=== PATIENT | female | born 1965 | race Caucasian/White ===

== ENCOUNTER → 2018-02-02 11:33 | Outpatient (CLI) | payer OTHER, SELFPAY ==
[2018-02-02 14:52] LABS: Absolute Lymphocyte Count 1.36 X10^3/ul (0.83-4.51); Absolute Neutrophil Count 4.1 X10^3/uL (2.0-7.7); Basophil# 0.03 X10^3/uL; Basophil% 0.5 % (0-1); Eosinophil# 0.07 X10^3/uL; Eosinophils% 1.2 % (0-5); Hematocrit 39.6 % (37-47); Hemoglobin 12.7 g/dl (12.0-15.0); Lymphocyte # 1.36 X10^3/ul (4.0); Lymphocyte % 22.6 % (19-41); Mean Corp Hgb Conc 32.1 g/gl (32-36); Mean Corpuscular Hgb 28.5 pg (27.0-32.0); Mean Platelet Vol. 10.2 fl (6.2-12.0); Monocyte# 0.49 X10^3/uL; Monocyte% 8.1 % (0-10); Neutrophil # 4.06 X10^3/uL (2.7-7.7); Neutrophil % 67.4 % (47-70); Platelet Count 260 K/mm3 (150-450); RBC Distribution Width SD 42.2 fl (35.1-43.9); Red Blood Count 4.45 M/mm3 (4.2-5.4)
[2018-02-02 14:56] LABS: POSITIVE COUNT NO; POSITIVE DIFFERENTIAL NO; POSITIVE MORPHOLOGY NO
[2018-02-02 15:32] LABS: ALB/GLOB Ratio 1.1 RATIO (0.9-2.4); AST(SGOT) 21 U/L (15-37); Alanine Aminotransfer ALT/SGPT 25 U/L (13-56); Albumin, Serum 3.9 g/dL (3.2-5.0); Alkaline Phosphatase 47 U/L (45-117); Anion Gap 5 (5-15); BUN 16 mg/dL (7-18); BUN/Creat Ratio 17.6 RATIO (10-20); Calcium,Total 9.3 mg/dL (8.5-10.1); Chloride 104 mmol/L (98-107); Creatinine, Serum 0.91 mg/dL (0.55-1.02); EST Glomerular Filtration Rate 69 mL/min (>60); Est Glom Filt Rate - Afr Amer 83 mL/min (>60); Globulin 3.6 g/dL (2.2-4.2); Glucose 93 mg/dL (74-106); Iron 72 ug/dL (50-170); Magnesium 2.3 mg/dL (1.6-2.6); Potassium 4.1 mmol/L (3.5-5.1); Protein, Total 7.5 g/dL (6.4-8.2); Sodium Level 139 mmol/L (136-145); Thyroid Stim Hormone (TSH) 1.49 uIU/mL (0.358-3.74); Vitamin B12 594 pg/mL (211-911)
== END ==
PROVIDERS: Family Provider Family Medicine; PCP Family Medicine; Visit Provider Family Medicine
DX: R53.83 Other fatigue (principal); R00.2 Palpitations
CPT/HCPCS: 36415; 80053; 82306; 82607; 83540; 83735; 84443; 85025

== ENCOUNTER → 2018-06-27 07:18 | Outpatient (CLI) | payer OTHER, SELFPAY ==
[2018-06-27 10:37] LABS: Vitamin D,25 Hydroxy 18.2 ng/mL (29.95-100.01)
--- OUTSIDE RECORDS SUMMARY | 2018-09-28 08:04 | XMS RPT_ITS ---
:1965 Author Organization [facility] Care Team Providers Name Role Phone Al Waktins Attending Unavailable Al Watkins Referring Unavailable Al Watkins Primary Care Unavailable Al Watkins Attending Unavailable Al Watkins Primary Care Unavailable PROBLEMS PROBLEMS No Problem Records FoundPROCEDURES PROCEDURES No Procedure Records FoundRESULTS RESULTS VITAMIN D,25 HYDROXY Collected: 06/27/2018 Status: F Source: [place] 7:24 AM [facility] [place] REPOSITORY TYPE CODE TESTS RESULT OUT OF REFERENCE UNITS RANGE LAB L506.1000 29.95-100.01 ng/mL Low Vitamin D 18.2 25-OH Result Comment: Vitamin D 25(OH) Status Range Deficiency <20 ng/mL (50nmol/L) Insuffciency 20 - 30 ng/mL (50 - 75 nmol/L) Sufficiency 30 - 100 ng/mL (75 - 250 nmol/L) Toxicity >100 ng/mL (>250 nmol/L) Performed By: #### L506.1000 #### [facility] FLAQUITA Jaime, 888481 CBC W/DIFF, AUTOMATED Collected: 02/02/2018 Status: F Source: [place] 11:37 AM [facility] REPOSITORY Order Comment: Order Date: 02/02/18 Order Info: 0184-1 - CBCD TYPE CODE TESTS RESULT OUT OF RANGE REFERENCE UNITS LAB L100.1000 4.4-11.0 K/mm3 Normal WBC 6.0 LAB L100.1200 4.2-5.4 M/mm3 Normal RBC 4.45 LAB L100.1300 12.0-15.0 g/dl Normal HGB 12.7 LAB L100.1400 37-47 % Normal HCT 39.6 LAB L100.1500 81-99 fL Normal MCV 89.0 LAB L100.1600 27.0-32.0 pg Normal MCH 28.5 LAB L100.1700 32-36 g/gl Normal MCHC 32.1 LAB L100.1810 11.6-14.6 % Normal RDW CV 13.0 LAB L100.1820 35.1-43.9 fl Normal RDW SD 42.2 LAB L100.1900 150-450 K/mm3 Normal PLT 260 LAB L100.2000 6.2-12.0 fl Normal MPV 10.2 LAB L100.2100 47-70 % Normal NEUT% 67.4 LAB L100.2200 19-41 % Normal LY% 22.6 LAB L100.2300 0-10 % Normal MONO% 8.1 LAB L100.2400 0-5 % Normal EO% 1.2 LAB L100.2500 0-1 % Normal BASO% 0.5 LAB L100.2550 0.0-0.9 % Normal IM GRAN % 0.200 Result Comment: IG% - Immature Granulocytes (promyelocytes, myelocytes and metamyelocytes) > 1% indicates that a LEFT SHIFT is Present. LAB L100.2620 2.0-7.7 X10 3/uL Normal Absolute Neut 4.1 LAB L100.2720 0.83-4.51 X10 3/ul Normal Absolute Lymph 1.36 Performed By: #### L100.0100, L500.4050, L501.5200, L501.9520, L503.6150, L503.0105, L506.1000 #### [facility] [address] [place], [address] COMPREHENSIVE METABOLIC Collected: 02/02/2018 Status: F Source: [place] 11:37 AM [facility] [place] REPOSITORY Order Comment: Order Date: 02/02/18 Order Info: 0786-1 - CMP Order Info: [id number] - MG Order Info: 3016-3 - TSH Order Info: 2498-4 - FE TYPE CODE TESTS RESULT OUT OF RANGE REFERENCE UNITS LAB L501.0100 74-106 mg/dL Normal GLU 93 Result Comment: Please note revised GLUCOSE reference range effective 2017. LAB L501.1000 7-18 mg/dL Normal BUN 16 LAB L501.1100 0.55-1.02 mg/dL Normal CREAT,SERUM 0.91 Result Comment: The validity of the calculated GFR AND GFRAA in patients over 70 years has not been determined. Clinical correlation is essential. LAB L501.1110 >60 mL/min Normal EST GFR 69 Result Comment: Non- GFR Calc LAB L501.1115 >60 mL/min Normal EST GFR - AA 83 Result Comment: GFR Calc LAB L501.1300 10-20 RATIO Normal BUN/CRE 17.6 LAB L501.1500 6.4-8.2 g/dL T Normal PROT 7.5 LAB L501.1800 3.2-5.0 g/dL Normal ALB 3.9 LAB L501.1950 2.2-4.2 g/dL Normal GLOB 3.6 LAB L501.2000 0.9-2.4 RATIO Normal A/G 1.1 LAB L501.2200 8.5-10.1 mg/dL CA Normal 9.3 LAB L501.4100 15-37 U/L Normal AST 21 LAB L501.4305 45-117 U/L Normal ALK P 47 LAB L501.4405 13-56 U/L Normal ALT 25 LAB L501.4600 0.20-1.00 mg/dL T Normal BILI 0.30 LAB L501.5300 136-145 mmol/L NA Normal 139 LAB L501.5600 3.5-5.1 mmol/L K Normal 4.1 LAB L501.5900 98-107 mmol/L CL Normal 104 LAB L501.6100 21.0-32.0 mmol/L Normal CO2 30.0 LAB L501.6200 5-15 Normal GAP 5 Performed By: #### L100.0100, L500.4050, L501.5200, L501.9520, L503.6150, L503.0105, L506.1000 #### [facility] [address] [place], [place], [address] (626) MAGNESIUM Collected: 02/02/2018 Status: F Source: PILAR 11:37 AM [facility] [place] REPOSITORY Order Comment: Order Date: 02/02/18 Order Info: [id number] - CMP Order Info: [id number] - MG Order Info: 3016-3 - TSH Order Info: 2498-4 - FE TYPE CODE TESTS RESULT OUT OF RANGE REFERENCE UNITS LAB L501.5200 1.6-2.6 mg/dL Normal MG 2.3 Performed By: #### L100.0100, L500.4050, L501.5200, L501.9520, L503.6150, L503.0105, L506.1000 #### [facility] [address] [place], [place], [address] THYROID STIM HORMONE Collected: 02/02/2018 Status: F Source: PILAR (TSH) 11:37 AM [facility] [place] REPOSITORY Order Comment: Order Date: 02/02/18 Order Info: 0786- - CMP Order Info: [id number] - MG Order Info: 3015-3 - TSH Order Info: 2498-4 - FE TYPE CODE TESTS RESULT OUT OF RANGE REFERENCE UNITS LAB L501.9520 0.358-3.74 uIU/mL Normal TSH 1.49 Performed By: #### L100.0100, L500.4050, L501.5200, L501.9520, L503.6150, L503.0105, L506.1000 #### [facility] [address] [place], [address] IRON Collected: 02/02/2018 Status: F Source: PILAR 11:37 AM [facility] [place] REPOSITORY Order Comment: Order Date: 02/02/18 Order Info: [id number] - CMP Order Info: [id number] - MG Order Info: 3016-3 - TSH Order Info: 2498-4 - FE TYPE CODE TESTS RESULT OUT OF RANGE REFERENCE UNITS LAB L503.6150 50-170 ug/dL Normal IRON 72 Performed By: #### L100.0100, L500.4050, L501.5200, L501.9520, L503.6150, L503.0105, L506.1000 #### [facility] [address] [place], [address] VITAMIN B12 Collected: 02/02/2018 Status: F Source: [place] 11:37 AM [facility] [place] REPOSITORY Order Comment: Order Date: 02/02/18 Order Info: 9 - B12 Order Info: 67299-5 - VITD25 TYPE CODE TESTS RESULT OUT OF RANGE REFERENCE UNITS LAB L503.0105 211-911 pg/mL Normal Vitamin B12 594 Performed By: #### L100.0100, L500.4050, L501.5200, L501.9520, L503.6150, L503.0105, L506.1000 #### [facility] [address] [place], [place], [address] VITAMIN D,25 HYDROXY Collected: 02/02/2018 Status: F Source: [place] 11:37 AM [facility] [place] REPOSITORY Order Comment: Order Date: 02/02/18 Order Info: 2131-9 - B12 Order Info: 85741-9 - VITD25 TYPE CODE TESTS RESULT OUT OF REFERENCE UNITS RANGE LAB L506.1000 29.95-100.01 ng/mL Low Vitamin D 20.0 25-OH Result Comment: Vitamin D 25(OH) Status Range Deficiency <20 ng/mL (50nmol/L) Insuffciency 20 - 30 ng/mL (50 - 75 nmol/L) Sufficiency 30 - 100 ng/mL (75 - 250 nmol/L) Toxicity >100 ng/mL (>250 nmol/L) Performed By: #### L100.0100, L500.4050, L501.5200, L501.9520, L503.6150, L503.0105, L506.1000 #### [facility] [address] [place], [address] ALLERGIES ALLERGIES DATE TYPE / CODE NAME / CODE REACTION SEVERITY SOURCE 09/12/2013 Drug Penicillins/ Hives Unknown [facility] Allergy/4160 [id number]( Hospital [address](SNOMED XNORM) Repository CT) ENCOUNTERS ENCOUNTERS ADMIT/DISCHARGE ACCOUNT ADMITTING ENCOUNTER LOCATION SOURCE NUMBER CLASS 06/27/2018 [id number] Ambulatory [place] [facility] ing:MTLAB Repository 02/02/2018 [id number] Ambulatory [place] [facility] [address] [facility] ing:MFPLAB Repository PAYERS PAYERS ENCOUNTER GUARANTOR PAYER SUBSCRIBER SOURCE 06/27/2018 KATIE Carson Primary LISAZach [id number] Insurance:SUMMA KLINECTDOB: [facility] [place]: [id number] Repository [address]90[address]Scz: [phone]) Date:[phone] () [address] [place] [phone]: 06/27/2018 Secondary NOT GIVENUNK [place] Insurance:SELF PAY [facility] Number: Effective Repository Date:2018-06-27 02/02/2018 Katie Carson Primary LISA [place] [id number] [facility] Insurance:SUMMA KLINECTDOB: [facility] Number: [id number] [id number] Repository [address]Acx: [phone]) Date:[id number] [phone] () [place], [place] [phone]: 02/02/2018 Secondary NOT GIVENUNK [place] Insurance:SELF PAY [facility] Number: Effective Repository Date:2018-02-02
== END ==
PROVIDERS: Family Provider Family Medicine; PCP Family Medicine; Referring Provider Family Medicine; Visit Provider Family Medicine
DX: E55.9 Vitamin D deficiency, unspecified (principal)
CPT/HCPCS: 36415; 82306

== ENCOUNTER → 2018-11-02 10:40 | Outpatient (CLI) | payer OTHER, SELFPAY ==
[2018-11-02 12:35] LABS: Vitamin D,25 Hydroxy 39.4 ng/mL (29.95-100.01)
== END ==
PROVIDERS: Family Provider Family Medicine; PCP Family Medicine; Referring Provider Family Medicine; Visit Provider Family Medicine
DX: E55.9 Vitamin D deficiency, unspecified (principal)
CPT/HCPCS: 36415; 82306

== ENCOUNTER → 2021-02-23 15:29 | Outpatient (CLI) | payer OTHER, SELFPAY ==
[2021-02-23 18:06] LABS: Hematocrit 39.5 % (37-47); Hemoglobin 13.1 g/dL (12.0-15.0); Mean Corp Hgb Conc 33.2 g/dL (32-36); Mean Corpuscular Hgb 28.7 pg (27.0-32.0); Mean Corpuscular Volume 86.4 fL (81-99); Mean Platelet Vol. 9.8 fl (6.2-12.0); Platelet Count 339 K/mm3 (150-450); RBC Distribution Width CV 12.5 % (11.6-14.6); RBC Distribution Width SD 39.1 fl (35.1-43.9); Red Blood Count 4.57 M/mm3 (4.2-5.4); White Blood Count 5.6 K/mm3 (4.4-11.0)
[2021-02-23 18:40] LABS: Vitamin B12 1587 pg/mL (211-911); Vitamin D,25 Hydroxy 30.8 ng/mL
[2021-02-23 18:49] LABS: AST(SGOT) 28 U/L (15-37); Alanine Aminotransfer ALT/SGPT 44 U/L (13-56); Albumin, Serum 3.9 g/dL (3.2-5.0); Alkaline Phosphatase 66 U/L (45-117); Anion Gap 5 (5-15); BUN 17 mg/dL (7-18); BUN/Creat Ratio 18.3 RATIO (10-20); Calcium,Total 9.6 mg/dL (8.5-10.1); Chloride 102 mmol/L (98-107); Creatinine, Serum 0.93 mg/dL (0.55-1.02); EST Glomerular Filtration Rate 67 mL/min (>60); Est Glom Filt Rate - Afr Amer 81 mL/min (>60); Ferritin 136 ng/mL (8-252); Globulin 3.8 g/dL (2.2-4.2); Glucose 85 mg/dL (74-106); Iron 60 ug/dL (50-170); Potassium 4.4 mmol/L (3.5-5.1); Protein, Total 7.7 g/dL (6.4-8.2); Sodium Level 137 mmol/L (136-145); Thyroid Stim Hormone (TSH) 1.67 uIU/mL (0.358-3.74)
== END ==
PROVIDERS: PCP Family Medicine; Referring Provider Family Medicine; Visit Provider Family Medicine
DX: R53.83 Other fatigue (principal); E55.9 Vitamin D deficiency, unspecified
CPT/HCPCS: 36415; 80053; 82306; 82607; 82728; 83540; 84443; 85027

== ENCOUNTER 2021-07-22 09:33 | Outpatient (CLI) | payer OTHER, SELFPAY ==
[2021-07-22 12:12] LABS: Absolute Lymphocyte Count 1.33 X10^3/uL (0.83-4.51); Absolute Neutrophil Count 3.1 X10^3/uL (2.0-7.7); Basophil# 0.05 X10^3/uL; Eosinophil# 0.06 X10^3/uL; Eosinophils% 1.2 % (0-5); Hematocrit 38.5 % (37-47); Hemoglobin 12.7 g/dL (12.0-15.0); Lymphocyte # 1.33 X10^3/ul (0.83-4.51); Lymphocyte % 26.5 % (19-41); Mean Corpuscular Hgb 28.5 pg (27.0-32.0); Mean Corpuscular Volume 86.3 fL (81-99); Mean Platelet Vol. 9.7 fl (6.2-12.0); Monocyte# 0.44 X10^3/uL; Monocyte% 8.8 % (0-10); NRBC Flagged by Analyzer 0 % (0-5); Neutrophil # 3.13 X10^3/uL (2.7-7.7); Neutrophil % 62.3 % (47-70); Platelet Count 319 K/mm3 (150-450); RBC Distribution Width CV 12.6 % (11.6-14.6); RBC Distribution Width SD 39.4 fl (35.1-43.9); Red Blood Count 4.46 M/mm3 (4.2-5.4)
[2021-07-22 12:45] LABS: Anion Gap 6 (5-15); BUN 19 mg/dL (7-18); BUN/Creat Ratio 22.7 RATIO (10-20); Calcium,Total 9.5 mg/dL (8.5-10.1); Chloride 105 mmol/L (98-107); Creatinine, Serum 0.84 mg/dL (0.55-1.02); EST Glomerular Filtration Rate 75 mL/min (>60); Est Glom Filt Rate - Afr Amer 91 mL/min (>60); Glucose 86 mg/dL (74-106); Magnesium 2.4 mg/dL (1.6-2.6); Sodium Level 139 mmol/L (136-145); Thyroid Stim Hormone (TSH) 1.27 uIU/mL (0.358-3.74)
== END 2021-07-22 23:59 | disposition short-term general hospital (02) ==
LOC: MFPLAB 09:37
PROVIDERS: PCP Family Medicine; Referring Provider Family Medicine; Visit Provider Family Medicine
DX: R00.2 Palpitations (principal)
CPT/HCPCS: 36415; 80048; 83735; 84443; 85025

== ENCOUNTER 2021-10-01 12:30 | Outpatient (CLI) | payer OTHER, SELFPAY ==
--- NOTE | 2021-10-01 12:37 | STE_ITS ---
Reason For Study: PVC'S Stress Results Protocol: Ravi Protocol Maximum Predicted HR: 165 bpm Target HR: 140 bpm % Maximum Predicted HR: 98 % DurationHeart Rate Stage (mm:ss) (bpm) BP BASELINE 69 118/74 STAGE 1 3:00 100 120/78 STAGE 2 3:00 116 122/64 STAGE 3 3:00 130 138/68 STAGE 4 3:00 150 142/70 STAGE 5 1:00 162 / RECOVERY 88 108/62 Stress Duration: 13:00 mm:ss Maximum Stress HR: 162 bpm Baseline Echocardiogram Findings Stress Echo Wall motion Data Resting WM Intermediate WM Stress WM Doppler Measurements & Calculations MV E max santi: 67.5 cm/sec TR max santi: 242.1 cm/sec MV A max santi: 89.9 cm/sec TR max P.5 mmHg MV E/A: 0.75 ECHO/Stress Test Echo w/o Contrast Interpretation Summary Exercise stress echo. 55-year-old lady with a history of premature ventricular complexes. Resting EKG demonstrates normal sinus rhythm with a rate of 72 bpm normal inter vals are noted resting blood pressure is 118/74 mmHg. The patient exercised according to the r egular Ravi protocol for total duration of 13 minutes completing 1 minute into stage V of the Ravi protocol. The maximum heart rate attained was 162 bpm which was 98% of max impact at heart rate the m aximum workload was 17.2 metabolic equivalents. At rest there were no ST or T wave changes noted kern ggest ischemia and at peak exercise upsloping ST changes were noted. No arrhythmias were noted. The p eak blood pressure was 142/70 mmHg which was a good blood pressure response to exercise. Stress echocardiogram. The resting echocardiogram demonstrated preserved left v entricular systolic function estimated at 60%. No wall motion abnormalities were noted. Mild mitral regurgitation was present and the E/A-wave ratio was 0.86. The tricuspid velocity was 2.43 m/s. M ild aortic regurgitation was noted. With exertion and there was thickening of all larios an d reduction of left ventricular systolic size to a peak of 70%. No wall motion abnormalities were p resent. The peak tricuspid velocity post exercise was 2.69 m/s. Conclusion: Normal exercise stress echo with no evidence of ischemia at a high workload. Excellent functional aerobic capacity. Ordering Physician: Simone Watkins Referring Physician: Simone Watkins Performed By: Marisela Harvey RDCS, RVT
== END 2021-10-01 23:59 | disposition home or self-care (01) ==
PROVIDERS: PCP Family Medicine; Referring Provider Family Medicine; Visit Provider Family Medicine
DX: I49.3 Ventricular premature depolarization (principal)
CPT/HCPCS: 93017; 93350

== ENCOUNTER → 2024-04-01 | Outpatient (CLI) | payer OTHER, SELFPAY ==
[2024-04-01 15:43] LABS: Hematocrit 41.1 % (37-47); Hemoglobin 13.3 g/dL (12.0-15.0); Mean Corp Hgb Conc 32.4 g/dL (32-36); Mean Corpuscular Volume 86.5 fL (81-99); Mean Platelet Vol. 9.5 fl (6.2-12.0); Platelet Count 307 K/mm3 (150-450); RBC Distribution Width CV 12.4 % (11.6-14.6); RBC Distribution Width SD 39.3 fl (35.1-43.9); Red Blood Count 4.75 M/mm3 (4.2-5.4)
[2024-04-01 16:20] LABS: Anion Gap 3 (5-15); BUN 14 mg/dL (7-18); BUN/Creat Ratio 16.1 RATIO (10-20); Calcium,Total 9.8 mg/dL (8.5-10.1); Chloride 105 mmol/L (98-107); Creatinine, Serum 0.87 mg/dL (0.55-1.02); EST Glomerular Filtration Rate 71 mL/min (>60); Est Glom Filt Rate - Afr Amer 86 mL/min (>60); Glucose 106 mg/dL (74-106); Magnesium 2.6 mg/dL (1.6-2.6); Potassium 4.3 mmol/L (3.5-5.1); Sodium Level 139 mmol/L (136-145)
== END | disposition home or self-care (01) ==
PROVIDERS: PCP Family Medicine; Referring Provider Family Medicine; Visit Provider Family Medicine
DX: R00.2 Palpitations (principal)
CPT/HCPCS: 36415; 80048; 83735; 84443; 85027